=== PATIENT | male | born 1980 | race Caucasian/White ===

== ENCOUNTER 2023-05-28 09:53 | Emergency (ER) | payer OTHER ==
[2023-05-28 11:25] LABS: BASO % 0.2 % (0-2.0); EOS % 0.3 % (0-4.5); HEMATOCRIT 41.7 % (35.4-49); HEMOGLOBIN 14.5 GM/dL (11.7-16.9); LYMPH % 8.5 % (8-40); MCH 31.8 pg (25.7-33.7); MCHC 34.6 g/dl (32.0-35.9); MEAN CELL VOLUME 91.9 fl (80-96); MEAN PLT VOLUME 8.9 fl (7.5-11.1); MONO % 4.8 % (3.8-10.2); NEUT % 86.2 % (42.8-82.8); PLATELET COUNT 213 10^3/uL (134-434); RBC 4.54 M/mm3 (4.00-5.60); RDW 13.6 % (11.9-15.9); WHITE BLOOD COUNT 13.7 K/mm3 (4.0-10.0)
[2023-05-28 11:34] LABS: INR 1.19 (0.83-1.09); PROTHROMBIN TIME (PATIENT) 13.8 SEC (9.7-13.0)
[2023-05-28 11:45] VITALS: BMI 29.9
[2023-05-28 12:00] LABS: CALCIUM 8.9 mg/dL (8.5-10.1)
[2023-05-28 12:01] LABS: ALBUMIN 3.6 g/dl (3.4-5.0)
[2023-05-28 12:05] LABS: BILIRUBIN,TOTAL 0.5 mg/dL (0.2-1); TOT PROT 6.2 g/dl (6.4-8.2)
[2023-05-28 12:23] VITALS: BP 142/78; PULSE 88; RESP 17; TEMP 97.8
[2023-05-28] MEDS ORDERED: morphine SULFATE 4 MG/ML VIAL ONE (12:25)
[2023-05-28] MEDS: morphine CARPU-JECT 4 MG/1 ML DISP.SYRIN IVPUSH ONE ×2 (12:25→12:26)
== END 2023-05-28 14:05 | disposition short-term general hospital (02) ==
LOC: JER 09:53
PROC: 3E033GC Introduction of Other Therapeutic Substance into Peripheral Vein, Percutaneous Approach (ICD-10-PCS; principal; 2023-05-28)
DX: M79.604 Pain in right leg (principal); S82.201A Unspecified fracture of shaft of right tibia, initial encounter for closed fracture; S82.401A Unspecified fracture of shaft of right fibula, initial encounter for closed fracture; V09.20XA Pedestrian injured in traffic accident involving unspecified motor vehicles, initial encounter; Y92.410 Unspecified street and highway as the place of occurrence of the external cause; Z20.822 Contact with and (suspected) exposure to COVID-19
CPT/HCPCS: 36415; 73552-TC-RT-FY; 73590-TC-RT-FY; 80053; 82550; 82553; 85025; 85610; 86850; 86900; 86901; 87635; 99285-25